=== PATIENT | male | born 1930 | race Caucasian/White ===

== ENCOUNTER 2016-11-17 17:26 | Emergency (ER) | payer OTHER ==
[~2016-11-17] VITALS: Ht 182.9 cm; Wt 108.0 kg
[2016-11-17 17:31] VITALS: TEMP 36.5; Ht 182.9 cm; Wt 108.0 kg
--- NOTE | 2016-11-17 18:20 | DIAGNOSTIC IMAGING REPORT ---
RIGHT ANKLE MIN 3 VIEWS ROUTINE CLINICAL HISTORY: Right ankle pain. COMPARISON: None. DISCUSSION: No acute fractures are visualized. There is calcaneal spurring. Small ossicles are visualized adjacent to the medial malleolus and distal fibula. These are felt to be old. The ankle mortise appears intact. IMPRESSION: Chronic change. No acute fractures. Electronically signed by: Rob Forbes M.D. 11/17/2016 6:18 PM Dictated Date/Time: 11/17/2016 6:17 PM
--- NOTE | 2016-11-17 18:20 | EMERGENCY ROOM VISIT NOTE ---
ED Visit Note First contact with patient: 18:16 I have seen and examined this patient with Ever Mallory and agree with the treatment plan. Vital Signs Date Time Temp Pulse Resp B/P Pulse Ox O2 Delivery O2 Flow Rate FiO2 11/17/16 17:31 36.5 78 18 155/73 98 Departure Information Referrals No Doctor, Assigned (PCP) Patient Instructions My [facility]
--- NOTE | 2016-11-17 18:21 | DIAGNOSTIC IMAGING REPORT ---
RIGHT FOOT MIN 3 VIEWS ROUTINE CLINICAL HISTORY: Right foot pain. COMPARISON: None. DISCUSSION: No acute fractures are visualized. There are no erosive changes. 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 There is calcaneal spurring. There is a corticated density adjacent to the base the fifth metatarsal. This is felt to be old. IMPRESSION: No acute fractures or dislocations identified Electronically signed by: Rob Forbes M.D. 11/17/2016 6:19 PM Dictated Date/Time: 11/17/2016 6:18 PM
[2016-11-17] MEDS ORDERED: DTRSR4 PO (18:26)
[2016-11-17] MEDS ORDERED: ACET-1311 PO ×2 (18:26)
[2016-11-17] MEDS ORDERED: GLIP-197 PO (18:26)
[2016-11-17] MEDS ORDERED: ALFU10TA2 PO (18:26)
[2016-11-17] MEDS ORDERED: HYG25 PO (18:26)
[2016-11-17] MEDS ORDERED: DABI150C PO (18:26)
[2016-11-17] MEDS ORDERED: METAMUCIL PO (18:26)
[2016-11-17] MEDS ORDERED: METO50TA7 PO (18:26)
[2016-11-17] MEDS ORDERED: LISI-725 PO (18:26)
[2016-11-17] MEDS ORDERED: MULT-506 PO (18:26)
[2016-11-17 19:25] VITALS: BP 137/73; PULSE 69; O2SAT 98
--- NOTE | 2016-11-17 20:26 | EMERGENCY ROOM VISIT NOTE ---
ED Visit Note First contact with patient: 17:31 CHIEF COMPLAINT: Right foot pain. HISTORY OF PRESENT ILLNESS: Mr. George is a 86-year old white male who is brought into the ED accompanied by her daughter complaining of right foot pain. Patient reports approximately 2 hours ago he walking and stepped on a pair of shorts, he heard and felt a popping sensation in his foot/ankle and developed pain. His pain has been constant since the injury. He is currently places his discomfort over the right cuboid/lateral malleolus area. He describes his pain as a sharp sensation. He rates his discomfort 9/ 10. His pain worsens with ambulation. He has not identified any alleviating factors related to the pain. He has not taken any medications for pain prior to arrival at the hospital. He denies any associated symptoms including lower leg pain, other foot pain, leg weakness/numbness/tingling. Patient denies any previous significant injuries or fractures to this area. REVIEW OF SYSTEMS: As noted above in History of Present Illness. PAST MEDICAL HISTORY: Diabetes, hypertension, unspecified urinary symptoms. CURRENT MEDICATIONS: Medications Dose Route/Sig Max Daily Dose Days Date Category [Metamucil] Tab 4 Tab PO QAM 11/17/16 Reported Chlorthalidone 25 Mg Tab 25 Mg PO QAM 11/17/16 Reported Multivitamin (Multivitamins) Tab 1 Tab PO QAM 11/17/16 Reported Pradaxa (Dabigatran Etexilate Mesylate) 150 Mg Cap 150 Mg PO BID 11/17/16 Reported Tylenol (Acetaminophen) 325 Mg Tab 650 Mg PO HS 11/17/16 Reported Tylenol (Acetaminophen) 325 Mg Tab 325 Mg PO QAM 11/17/16 Reported Uroxatral (Alfuzosin HCl) 10 Mg Tab 10 Mg PO QAM 11/17/16 Reported Zestril (Lisinopril) 20 Mg Tab 20 Mg PO BID 11/17/16 Reported Toprol-Xl (Metoprolol Succinate) 50 Mg Tabcr 50 Mg PO BID 11/17/16 Reported Detrol LA (Tolterodine Tartrate) 4 Mg Capcr 4 Mg PO QAM 11/17/16 Reported Glipizide Er (Glipizide) 5 Mg Tab 5 Mg PO BID 11/17/16 Reported ALLERGIES TO MEDICATIONS: Diltiazem, interferon, penicillin. SOCIAL HISTORY: Patient is currently retired; he feels safe in his home environment; he denies tobacco and alcohol use. PHYSICAL EXAM: Vital Signs: Date Time Temp Pulse Resp B/P Pulse Ox O2 Delivery O2 Flow Rate FiO2 11/17/16 19:25 69 16 137/73 98 Room Air 11/17/16 17:31 36.5 78 18 155/73 98 General: 86 year old male in mild distress due to pain, nontoxic-appearing, afebrile and hemodynamically stable. Neurological: Awake, alert, oriented to person place and time. Answering questions appropriately and following commands. Skin: Warm dry and pink. No soft tissue injuries. Right Lower Extremity: No gross liana deformities. No tenderness in the hip or knee. Mild tenderness over the cuboid tarsal and anterior aspect of the lateral malleolus without deformity, swelling, ecchymosis. No appreciable ligamentous laxity. Full range of motion in plantar flexion and dorsiflexion of the ankle against resistance. Throughout the foot the skin is pink and warm with brisk capillary refill. Able to distinguish light sensations through all dermatomes of the foot. ED COURSE: Patient is assessed as noted above. Right Ankle X-Rays: Were read by myself and the radiologist showing moderate arthritic changes but no acute fractures or dislocations. Right Foot X-Rays: Were read by myself and the radiologist showing moderate arthritic changes but no acute fractures or dislocations. Patient was offered pain medication and refused. Patient is placed in a walking ankle boot and is instructed to use his walker or as needed. Patient and daughter are educated about his condition and instructed on his treatment plan; he verbalizes understanding and agreement with the our plan. CLINICAL IMPRESSION: Right ankle/foot pain. DISPOSITION: Patient is discharged to home in stable condition accompanied by accompanied by his daughter; on reassessment he subjectively reported he was feeling better and rated his discomfort 3/10. PLAN: Comfort measures were discussed with the pain including rest, ice, elevation, boot and walker use and Tylenol for pain. Patient was encouraged to follow-up with his orthopedic physician for specialty care and treatment. Patient was encouraged to return to the ED for worsening/uncontrolled pain, uncontrolled swelling, foot weakness/numbness/tingling or any new/concerning symptoms.
== END 2016-11-17 19:32 | disposition home or self-care (01) ==
LOC: C.EDB 17:29 → C.EDD 19:32
DX: M79.671 Pain in right foot (principal); M25.571 Pain in right ankle and joints of right foot; E11.9 Type 2 diabetes mellitus without complications; I10 Essential (primary) hypertension; Z79.899 Other long term (current) drug therapy